=== PATIENT | male | born 1975 | race Hispanic/Latino ===

== ENCOUNTER 2018-05-10 06:04 | Outpatient (CLI) | payer BC | END 2018-05-10 06:05 | disposition home or self-care (01) | LOC: LAB 06:04 | PROVIDERS: ATTEND Nurse Practitioner Family | DX: R53.83 Other fatigue (principal) | CPT/HCPCS: 84402 ==

== ENCOUNTER 2018-05-16 07:14 | Outpatient (CLI) | payer BC | END 2018-05-16 07:15 | disposition home or self-care (01) | LOC: EDBD → ECHO 07:14 | PROVIDERS: ATTEND Nurse Practitioner Family | DX: I34.0 Nonrheumatic mitral (valve) insufficiency (principal); I07.1 Rheumatic tricuspid insufficiency | CPT/HCPCS: 93306 ==

== ENCOUNTER 2018-05-17 15:53 | Outpatient (CLI) | payer BC ==
--- NOTE | 2018-05-17 16:46 | Cat Scan Report ---
FINAL REPORT EXAM: CT ANGIO CHEST HISTORY: AORTIC ROOT Dilation TECHNIQUE: Enhanced CT of the chest at 2.5 mm axial intervals following a pulmonary embolism protocol. Coronal and sagittal imaging were also obtained. Coronal oblique MIP projections were obtained. Contrast: Intravenous contrast given PRIORS: None. FINDINGS: There is no evidence for pulmonary embolism in the main pulmonary artery, right and left pulmonary arteries or their major distributions. However, CT does not exclude distal pulmonary emboli. The aortic root is prominent in diameter measuring 4.8 x 3.9 cm (Axial image 71). Doubt this involves the area of the aortic valve. The remainder of the aorta is normal in caliber. The ascending aorta measures 3.7 cm in diameter. The descending thoracic aorta measures 2.9 cm in diameter. Otherwise, the lung parenchyma are expanded and clear with no evidence for parenchymal nodules, infiltrates, congestion, or pleural effusion. There is no evidence for mediastinal, hilar, or axillary adenopathy. Cardiovascular structures are within normal limits. No evidence for ventricular chamber enlargement is seen. Images through the lung bases include the upper abdomen which show no abnormalities of the visualized abdominal viscera. Bony structures demonstrate no focal abnormalities. IMPRESSION: 1. no evidence for pulmonary embolism. 2. Aortic root is dilated, however, the remainder of the aorta is normal caliber.
== END 2018-05-17 15:54 | disposition home or self-care (01) ==
LOC: EDBD 15:53 → CT 15:53
PROVIDERS: ATTEND Family Medicine
DX: I77.810 Thoracic aortic ectasia (principal)
CPT/HCPCS: 71275; Q9967

== ENCOUNTER 2018-05-31 05:44 | Outpatient (CLI) | payer BC ==
[2018-05-31 07:26] LABS: Alanine Aminotransferase 31 units/L (7-56); Albumin 4.4 g/dL (3.9-5); BUN/Creatinine Ratio 14; Blood Urea Nitrogen 11 mg/dL (9-20); Calcium 9.3 mg/dL (8.4-10.2); HDL Cholesterol 48 mg/dL (40-59); Hemolysis Index 3; LDL Cholesterol,Direct 131 mg/dL (50-130)
== END 2018-05-31 05:45 | disposition home or self-care (01) ==
LOC: LAB 05:44
DX: Z13.220 Encounter for screening for lipoid disorders (principal); Z13.29 Encounter for screening for other suspected endocrine disorder
CPT/HCPCS: 36415; 80053; 80061; 84443

== ENCOUNTER 2020-05-11 10:23 | Outpatient (CLI) | payer BC ==
--- NOTE | 2020-05-11 11:52 | XRay Report ---
THORACIC SPINE 3 VIEWS INDICATION: Middle back pain for years. COMPARISON: None. IMPRESSION: Normal alignment. 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 No acute osseous or sof t tissue abnormality. LUMBOSACRAL SPINE 2 VIEWS INDICATION: M54.5 LOW BACK PAIN. COMPARISON: None. IMPRESSION: There is 3 mm anterolisthesis of L5 with respect to the sacrum which appears to be secon gloria to chronic appearing bilateral L5 pars defects. The remaining lumbar vertebra are normal in alig nment. Mild disc space narrowing and endplate changes are noted at L1-2. The remaining levels are un remarkable. Mild facet arthropathy is identified at L4-5 and L5-S1 No acute osseous or soft tissue a bnormality. RIGHT KNEE 2 VIEWS INDICATION: Pain in right knee. COMPARISON: None. IMPRESSION: No acute osseous or soft tissue abnormality. No significant DJD. Signer Name: Matthew Almanzar Jr, MD Signed: 05/11/2020 11:48 AM Workstation Name: [id number]
== END 2020-05-11 10:24 | disposition home or self-care (01) ==
LOC: XRAY 10:23
PROVIDERS: ATTEND Internal Medicine
DX: M47.817 Spondylosis without myelopathy or radiculopathy, lumbosacral region (principal); M43.16 Spondylolisthesis, lumbar region; M25.561 Pain in right knee
CPT/HCPCS: 72070; 72100

== ENCOUNTER 2020-10-15 14:16 | Outpatient (CLI) | payer BC ==
--- NOTE | 2020-10-15 15:11 | Vascular Lab Report ---
DUPLEX DOPPLER LOWER EXTREMITY VEINS, LEFT INDICATION: acute embolism thrombosis of unspecified deep veins of LE. TECHNIQUE: Duplex doppler imaging was performed through the veins of the left lower extremity using venous compr ession and other maneuvers. COMPARISON: No relevant prior imaging study available. FINDINGS: Left Common femoral vein: Negative. Left Superficial femoral vein: Negative. Left Popliteal vein: Negative. Left Calf veins: Negative. Additional findings: None.. IMPRESSION: 1. No sonographic evidence for DVT in the left lower extremity. Signer Name: Ray Pressley MD Signed: 10/15/2020 3:07 PM Workstation Name: [id number]
== END 2020-10-15 14:17 | disposition home or self-care (01) ==
LOC: VAS 14:16
PROVIDERS: ATTEND Internal Medicine
DX: I82.409 Acute embolism and thrombosis of unspecified deep veins of unspecified lower extremity (principal)

== ENCOUNTER 2020-10-30 06:33 | Outpatient (CLI) | payer BC ==
--- NOTE | 2020-10-30 10:41 | Magnetic Resonance Report ---
MRI LEFT PROXIMAL TIBIA-FIBULA WITHOUT CONTRAST INDICATION / CLINICAL INFORMATION: PAIN IN LEFT LOWER LEG. TECHNIQUE: Multiplanar, multisequence MR images were obtained. Cutaneous marker provided at the area of interest . COMPARISON: None available. FINDINGS: BONES: No significant bone marrow edema. No fracture. No osseous lesion. MUSCLES: No significant abnormality. SOFT TISSUES: No significant abnormality. VISUALIZED JOINTS: No significant abnormality. ADDITIONAL FINDINGS: None. IMPRESSION: 1. No significant abnormality or specific finding in the region of interest to explain this patient's symptoms. Report dictated by: Golden Olivas MD Report dictated on: 10/30/2020 8:56 AM I have reviewed the images, agree with this report, and edited this report as needed. Signer Name: Glenn Miles MD Signed: 10/30/2020 10:37 AM Workstation Name: [id number]
== END 2020-10-30 06:34 | disposition home or self-care (01) ==
LOC: MRI 06:33
PROVIDERS: ATTEND Internal Medicine
DX: M79.662 Pain in left lower leg (principal)

== ENCOUNTER 2021-06-10 05:46 | Outpatient (CLI) | payer BC ==
[2021-06-10 06:18] LABS: Basophils % (Auto) 0.6 % (0.0-1.8); Eosinophils # (Auto) 0.3 K/mm3 (0.0-0.4); Eosinophils % (Auto) 5.1 % (0.0-4.3); Lymphocytes # (Auto) 1.9 K/mm3 (1.2-5.4); Lymphocytes % (Auto) 30.8 % (13.4-35.0); Mean Corpuscular HGB Conc 36 % (32-34); Mean Corpuscular Volume 86 fl (84-94); Monocytes # (Auto) 0.6 K/mm3 (0.0-0.8); Monocytes % (Auto) 9.4 % (0.0-7.3); Platelet Count 184 K/mm3 (140-440)
[2021-06-10 06:30] LABS: Hematocrit 41.1 % (35.5-45.6); Hemoglobin 14.9 gm/dl (11.8-15.2)
[2021-06-10 06:42] LABS: Alanine Aminotransferase 29 units/L (7-56); Albumin 4.4 g/dL (3.9-5); BUN/Creatinine Ratio 13; Blood Urea Nitrogen 12 mg/dL (9-20); Calcium 9.4 mg/dL (8.4-10.2); Chol/HDL Ratio 3.44 %; HDL Cholesterol 50 mg/dL (40-59); Hemolysis Index 7; LDL Cholesterol,Direct 108 mg/dL (50-130)
[2021-06-13 13:02] LABS: Vitamin D, 25-OH, D2 <4 ng/mL
== END 2021-06-10 05:47 | disposition home or self-care (01) ==
LOC: LAB 05:46
PROVIDERS: ATTEND Internal Medicine
DX: Z00.00 Encounter for general adult medical examination without abnormal findings (principal); R73.03 Prediabetes; Z13.220 Encounter for screening for lipoid disorders; E13.29 Other specified diabetes mellitus with other diabetic kidney complication
CPT/HCPCS: 36415; 80053; 80061; 82306; 82607; 83036; 84443; 85025